=== PATIENT | female | born 1985 | race Asian ===

== ENCOUNTER → 2024-11-10 10:17 | Outpatient (REF) | payer BC, SELFPAY | LOC: HWRAD 10:17 | PROVIDERS: ATTENDING PHYSICIAN Obstetrics & Gynecology; FAMILY PHYSICIAN Emergency Medicine | DX: N94.5 Secondary dysmenorrhea (principal); N84.1 Polyp of cervix uteri | CPT/HCPCS: 76830; 76856 ==